=== PATIENT | female | born 1985 | race Two or more races ===

== ENCOUNTER 2025-03-13 11:52 | Emergency (ER) | payer MEDICAID, SELFPAY ==
--- NOTE | 2025-03-13 | XR_ITS ---
Examination: Shoulder,left, 3 views Technique: Shoulder AP internal rotation, AP external rotation, Y view shoulder, 3 views Exam date and time mar 13 2025 1729 hours INDICATIONS: Left shoulder pain. FINDINGS: Moderate narrowing of the glenohumeral joint No fracture or dislocation. IMPRESSION: Moderate narrowing of the glenohumeral joint
[2025-03-13] MEDS: KETOROLAC INJ 30 MG/ML VIAL IM (12:32)
== END 2025-03-13 13:12 | disposition home or self-care (01) ==
PROVIDERS: Emergency Provider Emergency Medicine; PCP Family Medicine
DX: M25.512 Pain in left shoulder (principal)
CPT/HCPCS: 73030; 96372; 99283; J1885